=== PATIENT | female | born 1950 | race Caucasian/White ===

== ENCOUNTER 2020-11-26 20:12 | Emergency (ER) | payer MEDICARE ==
[~2020-11-26 20:12] MED LIST: ANTIVERT25 MG PO; ZOFRAN4 MG PO
[2020-11-26 22:13] LABS: BASOPHIL 0.6 % (0-2); EOSINOPHIL 4.3 % (0-7); HCT 36.6 % (37.0-47.0); HGB 11.3 g/dl (12.5-16.0); LYMPHOCYTE 28.8 % (15-48); MCHC 30.9 g/dL (32.0-36.0); MCV 93.8 fL (78.0-100.0); MONOCYTE 12.3 % (0-12); MPV 9.8 fL (6.0-9.5); NEUTROPHIL 53.7 % (41-80); NRBC 0; PLT 165 K/uL (150-400); RDW 13.2 % (11.5-14.0); WBC 6.3 K/uL (4.0-10.5)
[2020-11-26 22:25] LABS: INR 0.99 (0.9-1.2); PROTHROMBIN TIME 12.5 SECONDS (11.8-13.4); PTT 27.3 SECONDS (24.4-34.7)
[2020-11-26 22:34] LABS: ALBUMIN 3.8 g/dL (3.4-5.0); BILIRUBIN - TOTAL 0.5 mg/dL (0.2-1.0); BUN/CREAT RATIO (CALC) 20.1 RATIO; CREATININE 1.39 mg/dL (0.51-0.95); GLOBULIN (CALCULATION) 3.4 g/dL; POTASSIUM 4.4 mmol/L (3.5-5.1); TOTAL PROTEIN 7.2 g/dL (6.4-8.2)
== END 2020-11-27 00:32 | disposition home or self-care (01) ==
LOC: FER 20:12
PROVIDERS: Emergency Medicine Emergency Medical Services
DX: R41.82 Altered mental status, unspecified (principal); Z88.0 Allergy status to penicillin; Z98.890 Other specified postprocedural states; Z90.09 Acquired absence of other part of head and neck; Z79.899 Other long term (current) drug therapy
CPT/HCPCS: 36415; 70450; 71045; 80053; 82550; 84484; 85025; 85610; 85730; 93005; J7030